=== PATIENT | female | born 1995 | race Caucasian/White ===

== ENCOUNTER 2019-02-16 08:23 | Emergency (ER) | payer BC ==
[2019-02-16] MEDS ORDERED: Sodium Chloride 0.9% 1,000 ML IV ONE (08:28)
[2019-02-16] MEDS ORDERED: Ondansetron 4 MG/2 ML SDV IVPUSH ONE (08:28)
[2019-02-16] MEDS ORDERED: Sodium Chloride 0.9% 10 ML Syringe FLUSH PRN (08:28)
[2019-02-16] MEDS ORDERED: Ibuprofen 200 MG Tab PO STA (08:32)
--- NOTE | 2019-02-16 08:44 | EDM.PDOC ---
ED HPI GENERAL MEDICAL PROBLEM - General Stated Complaint: NOT FEELING WELL Time Seen by Provider: 02/16/19 08:25 Source of Information: Reports: Patient History Limitations: Reports: No Limitations - History of Present Illness INITIAL COMMENTS - FREE TEXT/NARRATIVE: Physical comes into the emergency department with complaints of nausea, vomiting , body aches 2 days. Patient states that she works at the [employer] and has been a lot of individuals who have been ill the last few weeks with gastritis and influenza. She noticed 2 days ago she began to have the body aches and chills. Shortly after that she began vomiting and had severe diarrhea. She feels that the diarrhea has slowed however she continues to vomit even when she drinks only water. She denies any severe headache, vision changes, chest pain, or shortness of breath. She does state that she has a generalized abdominal discomfort related to the severe nausea and vomiting that she has had. She denies any abdominal pain is reproducible or localized. She also denies any urinary symptoms or peripheral edema. She denies checking her temperature or taking any thing for the discomfort. Onset: Gradual Quality: Reports: Dull Severity: Mild Improves with: Reports: Immobilization Worsens with: Reports: Movement Context: Reports: Other Associated Symptoms: Reports: Malaise, Nausea/Vomiting Abdominal Pain Score (Numeric/FACES): 4 - Related Data Allergies Allergy/AdvReac Type Severity Reaction Status Date / Time No Known Allergies Allergy Verified 02/16/19 09:26 Home Meds: Home Meds Ethinyl Estradiol/Drospirenone [Drospirenone-Ee 3-0.03 mg Tab] 1 tab PO DAILY [History] Past Medical History Musculoskeletal History: Reports: Other (See Below) Other Musculoskeletal History: recent right knee injury ED ROS GENERAL - Review of Systems Review Of Systems: See Below Constitutional: Reports: Fever, Chills, Malaise, Fatigue, Decreased Appetite HEENT: Reports: No Symptoms Respiratory: Reports: No Symptoms Cardiovascular: Reports: No Symptoms Endocrine: Reports: No Symptoms GI/Abdominal: Reports: Diarrhea, Decreased Appetite, Nausea, Vomiting. Denies: Black Stool, Bloody Stool, Distension, Mucous in Stool, Stool Incontinence : Reports: No Symptoms Musculoskeletal: Reports: No Symptoms Skin: Reports: No Symptoms Neurological: Reports: No Symptoms Psychiatric: Reports: No Symptoms Hematologic/Lymphatic: Reports: No Symptoms Immunologic: Reports: No Symptoms ED EXAM, GI/ABD - Physical Exam Exam: See Below Exam Limited By: No Limitations General Appearance: Alert, No Apparent Distress Eyes: Bilateral: Normal Appearance, EOMI Throat/Mouth: Normal Inspection, Normal Lips, Normal Teeth, Normal Gums, Normal Oropharynx, Normal Voice, No Airway Compromise Head: Atraumatic, Normocephalic Neck: Normal Inspection, Supple, Non-Tender, Full Range of Motion Respiratory/Chest: No Respiratory Distress, Lungs Clear, Normal Breath Sounds, No Accessory Muscle Use, Chest Non-Tender Cardiovascular: Normal Peripheral Pulses, Regular Rate, Rhythm GI/Abdominal Exam: Normal Bowel Sounds, Soft, Non-Tender, No Distention, No Abnormal Bruit Back Exam: Normal Inspection, Full Range of Motion Extremities: Normal Inspection, Normal Range of Motion, Non-Tender, No Pedal Edema, Normal Capillary Refill Neurological: Alert, Oriented, CN II-XII Intact, Normal Cognition, Normal Gait, Normal Reflexes, No Motor/Sensory Deficits Psychiatric: Normal Affect, Normal Mood Skin Exam: Warm, Dry, Intact, Normal Color Course - Vital Signs Last Recorded V/S: Last Vital Signs Temp 36.8 C 02/16/19 08:25 Pulse 75 02/16/19 08:25 Resp 16 02/16/19 08:25 BP 143/76 H 02/16/19 08:25 Pulse Ox 98 02/16/19 08:25 - Orders/Labs/Meds Orders: Active Orders 24 hr Category Date Time Status Sodium Chloride 0.9% [Saline Flush] Med 02/16/19 08:28 Active 10 ml FLUSH ASDIRECTED PRN Peripheral IV Insertion Adult [OM.PC] Stat Oth 02/16/19 08:28 Ordered Medication Orders Sodium Chloride (Saline Flush) 10 ml FLUSH ASDIRECTED PRN PRN Reason: Keep Vein Open Meds: Medications Generic Name Dose Route Start Last Admin Trade Name Freq PRN Reason Stop Dose Admin Sodium Chloride 10 ml 02/16/19 08:28 Saline Flush FLUSH ASDIRECTED PRN Keep Vein Open Discontinued Medications Generic Name Dose Route Start Last Admin Trade Name Freq PRN Reason Stop Dose Admin Sodium Chloride 1,000 mls @ 1,000 mls/hr 02/16/19 08:28 02/16/19 08:44 Normal Saline IV 02/16/19 09:27 1,000 mls/hr ONETIME ONE Administration Ibuprofen 600 mg 02/16/19 08:32 02/16/19 08:44 Motrin PO 02/16/19 08:33 600 mg NOW STA Administration Ondansetron HCl 4 mg 02/16/19 08:28 02/16/19 08:44 Zofran IVPUSH 02/16/19 08:29 4 mg ONETIME ONE Administration Departure - Departure Time of Disposition: 09:40 Disposition: Home, Self-Care 01 Condition: Good Clinical Impression: Gastroenteritis - Discharge Information *PRESCRIPTION DRUG MONITORING PROGRAM REVIEWED*: Not Applicable *COPY OF PRESCRIPTION DRUG MONITORING REPORT IN PATIENT JESSE: Not Applicable Instructions: Viral Gastroenteritis, Adult Forms: ED Department Discharge Additional Instructions: 1. rest 2. increase your water intake slowly 3. Eat bland items till able to tolerate fluids 4. Can take Tylenol and ibuprofen as needed for pain or fever. 5. Follow up as needed 6. Activity and diet as tolerated 7. Call with any questions or concerns. - Problem List Review Problem List Initiated/Reviewed/Updated: Yes - My Orders Last 24 Hours: My Active Orders 02/16/19 08:28 Sodium Chloride 0.9% [Saline Flush] 10 ml FLUSH ASDIRECTED PRN Peripheral IV Insertion Adult [OM.PC] Stat - Assessment/Plan Last 24 Hours: My Active Orders 02/16/19 08:28 Sodium Chloride 0.9% [Saline Flush] 10 ml FLUSH ASDIRECTED PRN Peripheral IV Insertion Adult [OM.PC] Stat Assessment:: 1. gastritis Plan: 1. Fluids given in ER. 2. Zofran given in ER. 3. Ibuprofen given in ER. 4. Rapid influenza screen negative 5. Patient feels much better after given fluids. She would like to discharge home. 6. Education regarding gastritis given and follow up information. 7. All questions and concerns addressed prior to discharge.
== END 2019-02-16 09:46 | disposition home or self-care (01) ==
LOC: VM.ED 08:23
DX: K52.9 Noninfective gastroenteritis and colitis, unspecified (principal)
CPT/HCPCS: 87804; 96361; 96374; 99284; A9270; J2405; J7030